=== PATIENT | female | born 1950 | race Asian ===

== ENCOUNTER 2018-03-06 13:06 | Emergency (ER) | payer OTHER ==
[~2018-03-06] VITALS: Ht 152.4 cm; Wt 61.7 kg
--- NOTE | ~2018-03-06 | EKG ---
[place] [address] [email or web address] [address] ELECTROCARDIOGRAM REPORT Name: ARTHUR HERBERT Room #: DARREN Anglin#: [id number] Admission: 03/06/18 Attend Phys: Discharge: Date of : 50 Report #: [id number] THIS REPORT FOR: //name// [facility] ED Test Date: 2018-03-06 Test Time: 13:28:37 Pat Name: ARTHUR HERBERT Department: Room: Gender: F Security System Analyst: YOUSUF : 1950 Requested By: Josh Herbert Order Number: [id number] MD: Usama Cuello Measurements Intervals [place] Rate: 70 P: 56 UT: 150 QRS: 27 QRSD: 96 T: 45 QT: 410 QTc: 443 Interpretive Statements Sinus rhythm No significant abnormality No previous ECG available for comparison Electronically Signed On 03-06-2018 17:48:36 CDT by Usama Cuello [email or web address] <ELECTRONICALLY SIGNED> By: Usama Cuello MD, [facility] 03/06/18 1748 [id number] Usama Cuello MD, FACC /EPI
[2018-03-06 13:57] LABS: ABSOLUTE NEUTROPHILS 10.5 thou/uL (1.4-8.2); BASOPHILS 0.7 % (0.0-2.0); EOSINOPHILS 0.1 % (0.0-3.0); HEMATOCRIT 40.5 % (37.0-47.0); HEMOGLOBIN 13.6 gm/dL (12.0-15.0); LYMPHOCYTES 11.3 % (24.0-44.0); MCH 29.3 pg (26.0-34.0); MCHC 33.7 g/dL (28.0-37.0); MONOCYTES 2.6 % (1.0-8.0); PLATELET COUNT 299 thou/uL (150-400); POLYS 85.3 % (36.0-66.0); RBC 4.66 mil/uL (4.20-5.00); WBC 12.3 thou/uL (4.0-11.0)
[2018-03-06 14:05] LABS: ANION GAP 9 mmol/L (7-16); BUN 20 mg/dL (7-18); CALCIUM 9.6 mg/dL (8.5-10.1); CHLORIDE 103 mmol/L (98-107); CO2 23 mmol/L (21-32); CREATININE 0.7 mg/dL (0.6-1.0); GLUCOSE 184 mg/dL (74-106); POTASSIUM 3.5 mmol/L (3.5-5.1); SODIUM 135 mmol/L (136-145)
[2018-03-06 14:13] LABS: ALBUMIN 3.7 g/dL (3.4-5.0); SGOT 20 U/L (15-37); SGPT 20 U/L (30-65); TOTAL BILIRUBIN 0.3 mg/dL (<0.1-1.0); TOTAL PROTEIN 7.5 g/dL (6.4-8.2); TROPONIN-I < 0.04 ng/mL (<0.06)
[2018-03-06] MEDS ORDERED: VALIUM5 MG PO (14:24)
[2018-03-06] MEDS ORDERED: ANTIVERT25 MG PO (14:24)
[2018-03-06] MEDS ORDERED: MEDROLDOSEPACK PO (14:24)
[2018-03-06] MEDS ORDERED: ZOFRAN ODT4 M1 PO (14:48)
[2018-03-06 16:00] VITALS: BP 128/67
== END 2018-03-06 16:00 | disposition home or self-care (01) ==
LOC: ER 13:06
PROVIDERS: Physician Assistant
DX: R11.2 Nausea with vomiting, unspecified (principal); R42 Dizziness and giddiness; H92.02 Otalgia, left ear

== ENCOUNTER → 2020-07-30 | Outpatient (CLI) | payer OTHER ==
[~2020-07-30] MED LIST: ANTIVERT25 MG PO; MEDROLDOSEPACK PO; VALIUM5 MG PO; ZOFRAN ODT4 M1 PO
== END ==
LOC: CAT 09:31
PROVIDERS: ATTEND Family Medicine
DX: Z13.6 Encounter for screening for cardiovascular disorders (principal); I25.10 Atherosclerotic heart disease of native coronary artery without angina pectoris; E78.00 Pure hypercholesterolemia, unspecified

== ENCOUNTER → 2020-08-06 | Outpatient (CLI) | payer BC, OTHER | LOC: NUC 09:53 | PROVIDERS: ATTEND Family Medicine | DX: M85.80 Other specified disorders of bone density and structure, unspecified site (principal); G93.89 Other specified disorders of brain; M81.0 Age-related osteoporosis without current pathological fracture; H93.11 Tinnitus, right ear ==

== ENCOUNTER → 2021-08-03 | Outpatient (CLI) | payer OTHER, BC | LOC: RAD 10:57 | PROVIDERS: ATTEND Nurse Practitioner | DX: M51.36 Other intervertebral disc degeneration, lumbar region (principal); M17.12 Unilateral primary osteoarthritis, left knee; M85.88 Other specified disorders of bone density and structure, other site; M46.96 Unspecified inflammatory spondylopathy, lumbar region; M48.061 Spinal stenosis, lumbar region without neurogenic claudication; R25.1 Tremor, unspecified ==

== ENCOUNTER → 2021-09-01 | Outpatient (CLI) | payer OTHER, BC | LOC: MRI 08-31 10:34 | PROVIDERS: ATTEND Nurse Practitioner | DX: M47.816 Spondylosis without myelopathy or radiculopathy, lumbar region (principal); R29.898 Other symptoms and signs involving the musculoskeletal system; R25.1 Tremor, unspecified ==